=== PATIENT | female | born 1970 | race Caucasian/White ===

== ENCOUNTER 2017-12-23 06:38 | Day surgery (SDC) | payer OTHER ==
[~2017-12-23 06:38] MED LIST: LIPITOR20 MG PO; SYNTHROID75 MCG PO
[2017-12-23] MEDS ORDERED: ALEVE220 M1 PO (17:21)
[2017-12-23] MEDS ORDERED: DUI500 PO (17:21)
[2017-12-23] MEDS ORDERED: PERCOCET 5-3251 EACH PO (17:21)
== END 2017-12-23 19:15 | disposition home or self-care (01) ==
LOC: CIR.AMB 06:38
DX: S52.571A Other intraarticular fracture of lower end of right radius, initial encounter for closed fracture (principal)

== ENCOUNTER 2022-10-18 15:05 | Outpatient (CLI) | payer OTHER ==
[~2022-10-18 15:05] MED LIST changes: +ALEVE220 M1 PO; +DUI500 PO; +PERCOCET 5-3251 EACH PO
== END 2022-10-18 15:12 | disposition home or self-care (01) ==
LOC: RAD 15:05
PROVIDERS: ATTEND Orthopaedic Surgery
DX: M25.511 Pain in right shoulder (principal)

== ENCOUNTER → 2022-11-05 | Outpatient (CLI) | payer OTHER | END | disposition home or self-care (01) | LOC: RAD 12:01 | PROVIDERS: ATTEND Orthopaedic Surgery | DX: M75.121 Complete rotator cuff tear or rupture of right shoulder, not specified as traumatic (principal); M75.21 Bicipital tendinitis, right shoulder; Z76.89 Persons encountering health services in other specified circumstances ==

== ENCOUNTER 2022-11-11 09:11 | Outpatient (CLI) | payer OTHER ==
[~2022-11-11] VITALS: Ht 160 cm; Wt 76.2 kg
== END 2022-11-11 09:12 | disposition home or self-care (01) ==
LOC: LAB 09:11
PROVIDERS: ATTEND Orthopaedic Surgery
DX: D64.89 Other specified anemias (principal); E88.89 Other specified metabolic disorders; D68.8 Other specified coagulation defects; N39.0 Urinary tract infection, site not specified; A49.02 Methicillin resistant Staphylococcus aureus infection, unspecified site; I49.9 Cardiac arrhythmia, unspecified; I10 Essential (primary) hypertension